=== PATIENT | male | born 2000 | race Caucasian/White ===

== ENCOUNTER 2025-04-07 17:05 | Inpatient (IN) | payer OTHER ==
[~2025-04-07] VITALS: Ht 190.5 cm; Wt 109.0 kg
[2025-04-07 18:06] LABS: PLATELET COUNT, AUTOMATED 309 10^3/uL (150-450)
[2025-04-07 18:33] LABS: ETHYL ALCOHOL (ETHANOL) < 0.003 % (0.000-0.010)
[2025-04-07 18:35] LABS: ALT/SGPT 32 U/L (7.0-40); AST/SGOT 18 U/L (<34); CALCIUM LEVEL 9.4 MG/DL (8.5-10.1); CARBON DIOXIDE LEVEL 26 MMOL/L (20-31); CHLORIDE LEVEL 106 MMOL/L (98-107); CREATININE FOR GFR 0.98 MG/DL (0.70-1.30); GLOMERULAR FILTRATION RATE > 90.0 (>60); POTASSIUM SERUM 4.4 MMOL/L (3.5-5.1); SALICYLATE LEVEL < 3.0 MG/DL (<30); SODIUM LEVEL 142 MMOL/L (136-145)
[2025-04-07 18:45] LABS: AMPHETAMINES LEVEL URINE NEGATIVE (NEGATIVE); BARBITURATES URINE NEGATIVE (NEGATIVE)
[2025-04-07 18:46] LABS: BENZODIAZEPINES URINE NEGATIVE (NEGATIVE); CANNABINOIDS URINE NEGATIVE (NEGATIVE); COCAINE METABOLITE URINE NEGATIVE (NEGATIVE); METHADONE URINE NEGATIVE (NEGATIVE); OPIATES URINE NEGATIVE (NEGATIVE); PHENCYCLIDINE URINE NEGATIVE (NEGATIVE)
[2025-04-07] MEDS ORDERED: HOME MED LIST COMPLETE! XX SCH (19:40)
[2025-04-07] MEDS ORDERED: MAALOX 30 ML SUSP *UDC PO PRN (20:30)
[2025-04-07] MEDS ORDERED: traZODone 50 MG TAB PO PRN (20:30)
[2025-04-07] MEDS ORDERED: ACETAMINOPHEN 325 MG TAB PO PRN (20:30)
[2025-04-07] MEDS ORDERED: MOM 30 ML SUSPENSION UDC PO PRN (20:30)
[2025-04-08 02:17] VITALS: BP 144/72; TEMP 98; O2SAT 98
[2025-04-08 06:28] VITALS: BP 134/68; TEMP 98.2; O2SAT 99
[2025-04-08] MEDS: IBUPROFEN 400 MG TAB PO PRN (08:42)
[2025-04-08] MEDS: NICOTINE 21 MG/24 HR 1 EA TRANSDERMAL TD SCH (09:46)
[2025-04-08 14:52] VITALS: BP 140/64; TEMP 98.1; O2SAT 97
[2025-04-09 06:37] VITALS: BP 117/59; TEMP 97.9; O2SAT 98
[2025-04-09 16:01] VITALS: BP 132/61; TEMP 97.7; O2SAT 98
[2025-04-10 06:32] VITALS: BP 126/69; TEMP 97.6; O2SAT 100
[2025-04-10] MEDS: NICOTINE 21 MG/24 HR 1 EA TRANSDERMAL TD SCH (08:46)
== END 2025-04-10 11:49 | disposition home or self-care (01) | DRG 754 ==
LOC: M ED 17:05 → M ED INP 20:27 → M PSY 23:15
PROVIDERS: ADMIT Psychiatry & Neurology Neurology; ATTEND General Practice
DX: F43.21 Adjustment disorder with depressed mood (principal); F17.210 Nicotine dependence, cigarettes, uncomplicated; Z56.0 Unemployment, unspecified; Z81.8 Family history of other mental and behavioral disorders; Z63.0 Problems in relationship with spouse or partner; Z59.89 Other problems related to housing and economic circumstances